=== PATIENT | male | born 1975 | race Two or more races ===

== ENCOUNTER 2018-08-26 19:08 | Emergency (ER) | payer OTHER ==
[~2018-08-26] VITALS: Ht 152.4 cm; Wt 70.3 kg
[2018-08-26] MEDS ORDERED: SILVER SULFADIAZINE 1 % TOPICAL CREAM 50GM TOP ONE (20:45)
[2018-08-26] MEDS ORDERED: HYDROcodone-ACET 10/325MG TAB PO ONE (20:45)
[2018-08-26] MEDS ORDERED: cefTRIAXone SOD 1,000 MG VL IM ONE (20:45)
[2018-08-26] MEDS ORDERED: DERMOPLAST 60ML BOTTLE TOP ONE (20:45)
[2018-08-26] MEDS ORDERED: TETANUS-DIPTH-ACEL PERTUSSIS 0.5ML SYRG IM ONE (21:30)
[2018-08-26 21:55] VITALS: BP 155/87
== END 2018-08-26 21:57 | disposition home or self-care (01) ==
LOC: ER 19:19
DX: T22.212A Burn of second degree of left forearm, initial encounter (principal); T31.0 Burns involving less than 10% of body surface; X10.2XXA Contact with fats and cooking oils, initial encounter; Y93.89 Activity, other specified; Y99.0 Civilian activity done for income or pay; Y92.89 Other specified places as the place of occurrence of the external cause
CPT/HCPCS: 16000; 90471; 90715; 96372; 99284; J0696; 16020

== ENCOUNTER 2018-08-29 17:22 | Emergency (ER) | payer OTHER ==
[~2018-08-29] VITALS: Ht 165.1 cm; Wt 70.3 kg
[2018-08-29 17:46] VITALS: BP 137/99
== END 2018-08-29 22:46 | disposition home or self-care (01) ==
LOC: ER 17:22
DX: T22.212D Burn of second degree of left forearm, subsequent encounter (principal)

== ENCOUNTER 2022-10-13 08:22 | Emergency (ER) | payer MEDICAID ==
[~2022-10-13] VITALS: Ht 170.2 cm; Wt 71.6 kg
[~2022-10-13 08:22] MED LIST: MET500T PO; METF-370 PO; TRAM50TA2 PO
[2022-10-13 09:01] VITALS: BP 126/85
== END 2022-10-13 09:31 | disposition home or self-care (01) ==
LOC: ER 08:22
DX: Z45.2 Encounter for adjustment and management of vascular access device (principal); Z87.442 Personal history of urinary calculi

== ENCOUNTER 2022-10-20 07:01 | Emergency (ER) | payer MEDICAID ==
[~2022-10-20] VITALS: Ht 165.1 cm; Wt 73.0 kg
[2022-10-20 08:46] VITALS: BP 135/73
[2022-10-21] MEDS ORDERED: MET500T PO (16:30)
== END 2022-10-20 08:52 | disposition home or self-care (01) ==
LOC: ER 07:01
DX: Z45.2 Encounter for adjustment and management of vascular access device (principal); Z87.442 Personal history of urinary calculi

== ENCOUNTER 2022-10-21 14:12 | Emergency (ER) | payer MEDICAID ==
[~2022-10-21] VITALS: Ht 165.1 cm; Wt 72.1 kg
[2022-10-21 15:24] LABS: Basophils % (auto) 0.8 % (0.0-2.0); Eosinophils # (auto) 0.4 10 ^3/uL (0-0.8); Eosinophils % (auto) 6.9 % (0.0-7.0); Lymphocytes # (auto) 2.2 10 ^3/uL (0.4-5.4); Mean Corpuscular Hemoglobin 26.8 pg (28.0-32.0); Mean Corpuscular Hgb Conc. 32.9 g/dL (32.0-36.0); Monocytes # (auto) 0.5 10 ^3/uL (0-1.3); White Blood Cell 6.2 10^3/uL (4.4-10.8)
[2022-10-21 15:26] LABS: Basophils # (auto) 0.1 10 ^3/uL (0-0.2); Hematocrit 39.9 % (41.0-53.0); Hemoglobin 13.1 g/dL (13.5-17.5); Lymphocytes % (auto) 35.8 % (10.0-50.0); Mean Corpuscular Volume 81.7 fL (80.0-100.0); Monocytes % (auto) 7.7 % (0.0-12.0); Neutrophils % (auto) 48.8 % (37.0-80.0); Nucleated Red Blood Cells % 0.1 %; Red Blood Cells 4.89 10^6/uL (4.5-5.90)
[2022-10-21 15:45] LABS: Albumin 3.3 g/dL (3.4-5.0); Calcium 8.8 mg/dL (8.5-10.1); Potassium 3.9 mmol/L (3.5-5.1)
[2022-10-21 15:49] LABS: BUN/Creatinine Ratio 18.8 (10.0-20.0); Bilirubin, Total 0.3 mg/dL (0.2-1.0); Total Protein 7.8 g/dL (6.4-8.2)
[2022-10-21] MEDS ORDERED: MET500T PO (16:30)
[2022-10-21 16:49] VITALS: BP 124/92
== END 2022-10-21 16:51 | disposition home or self-care (01) ==
LOC: ER 14:12
DX: K75.0 Abscess of liver (principal); Z48.03 Encounter for change or removal of drains
CPT/HCPCS: 36415; 74176; 75984; 80053; 85025; 87040